=== PATIENT | male | born 1980 | race Caucasian/White ===

== ENCOUNTER 2020-03-24 12:05 | Day surgery (SDC) | payer OTHER ==
--- NOTE | 2020-01-02 08:34 | PCM.PREANE ---
Preanesthetic Assessment - Anesthesia/Transfusion/Family Hx Anesthesia History: Prior Anesthesia Without Reaction Family History of Anesthesia Reaction: No Transfusion History: No Prior Transfusion(s) Intubation History: Unknown - Review of Systems Pulmonary: No Symptoms (Smoker: 3/4 ppd times 20 years. ETOH:) - Physical Assessment NPO Status Date: 01/04/20 Vital Signs: HR: BP: Sat: Resp: Temp: Height: 1.85 m ASA Class: 2 Mental Status: Alert & Oriented x3 - Lab Values: All labs reviewed and noted and within acceptable ranges to proceed with scheduled procedure. - Anesthesia Plan Pre-Op Medication Ordered: None - Acknowledgements Anesthesia Type Planned: General Anesthesia Pt an Appropriate Candidate for the Planned Anesthesia: Yes Alternatives and Risks of Anesthesia Discussed w Pt/Guardian: Yes Pt/Guardian Understands and Agrees with Anesthesia Plan: Yes PreAnesthesia Questionnaire - CURRENT (IN HOUSE) MEDS Current Meds: Current Medications Lactated Ringer's (Ringers, Lactated) 1,000 mls @ 125 mls/hr IV ASDIRECTED ROGER Stop: 01/05/20 23:00 Lidocaine/Sodium Bicarbonate (Buffered Lidocaine 1% In Ns 8.4%) 0.25 ml IDERM ONETIME PRN PRN Reason: Prior to IV Start Stop: 01/05/20 18:00 Sodium Chloride (Saline Flush) 10 ml FLUSH ASDIRECTED PRN PRN Reason: Keep Vein Open Stop: 01/05/20 18:00
--- NOTE | 2020-03-24 11:56 | PCM.PREANE ---
Preanesthetic Assessment - Procedure Proposed Procedure: Diagnostic laparoscopy with umbilical hernia repair with mesh - Anesthesia/Transfusion/Family Hx Anesthesia History: Prior Anesthesia Without Reaction Family History of Anesthesia Reaction: No Transfusion History: No Prior Transfusion(s) Intubation History: Unknown - Review of Systems General: No Symptoms Pulmonary: No Symptoms (DANIEL, Attempting to quit smoking p 3 days times 20 yrs, ETOH: 2beers/week.) Cardiovascular: No Symptoms Gastrointestinal: No Symptoms (GERD occasionally) Neurological: No Symptoms, Headache (occasional sinus headache) Other: Reports: Sinus Problem - Physical Assessment NPO Status Date: 01/04/20 NPO Status Time: 20:00 Vital Signs: HR: 94 B/P:132/93 Sat: 97% Temp: 98 Resp: 16 Height: 1.85 m Weight: 144.696 kg ASA Class: 3 Mental Status: Alert & Oriented x3 Airway Class: Mallampati = 2 Dentition: Reports: Normal Dentition, Caries Thyro-Mental Finger Breadths: 3 Mouth Opening Finger Breadths: 3 ROM/Head Extension: Full Lungs: Clear to Auscultation, Normal Respiratory Effort Cardiovascular: Regular Rate, Regular Rhythm, No Murmurs - Lab Values: Laboratory Last Values SARS Virus RNA (PCR) Negative (NEGATIVE) 03/22/20 09:00 All labs reviewed and noted and within acceptable ranges to proceed with scheduled procedure. - Imaging/EKG Impressions: EKG: SR rate=82 - Allergies Allergies/Adverse Reactions: Allergies Allergy/AdvReac Type Severity Reaction Status Date / Time No Known Allergies Allergy Verified 03/23/20 13:41 - Anesthesia Plan Pre-Op Medication Ordered: None - Acknowledgements Anesthesia Type Planned: General Anesthesia Pt an Appropriate Candidate for the Planned Anesthesia: Yes Alternatives and Risks of Anesthesia Discussed w Pt/Guardian: Yes Pt/Guardian Understands and Agrees with Anesthesia Plan: Yes PreAnesthesia Questionnaire Cardiovascular History: Reports: None Respiratory History: Reports: None Gastrointestinal History: Reports: None Genitourinary History: Reports: None BAG TURNER History: Reports: None Musculoskeletal History: Reports: None Neurological History: Reports: None Psychiatric History: Reports: None Endocrine/Metabolic History: Reports: None Hematologic History: Reports: None Immunologic History: Reports: None Oncologic (Cancer) History: Reports: None Dermatologic History: Reports: Other (See Below) Other Dermatologic History: pilonidal cyst with I&D - Infectious Disease History Infectious Disease History: Reports: None - Past Surgical History Head Surgeries/Procedures: Reports: None HEENT Surgical History: Reports: Oral Surgery Cardiovascular Surgical History: Reports: None Respiratory Surgical History: Reports: None GI Surgical History: Reports: None Female Surgical History: Reports: None Male Surgical History: Reports: None Endocrine Surgical History: Reports: None Neurological Surgical History: Reports: None Musculoskeletal Surgical History: Reports: Other (See Below) Other Musculoskeletal Surgeries/Procedures:: right hand surgery Oncologic Surgical History: Reports: None Dermatological Surgical History: Reports: None - SUBSTANCE USE Smoking Status *Q: Current Every Day Smoker Recreational Drug Use History: No - HOME MEDS Home Medications: Home Meds Multivitamin [Daily Tisha] 1 tab PO DAILY 01/02/20 [History] Acetaminophen [Tylenol] 650 mg PO Q4H PRN 03/23/20 [History] Ibuprofen 400 mg PO Q6H PRN 03/23/20 [History] Varenicline Tartrate [Chantix] 1 mg PO BID 03/23/20 [History] - CURRENT (IN HOUSE) MEDS Current Meds: Current Medications Lactated Ringer's (Ringers, Lactated) 1,000 mls @ 125 mls/hr IV ASDIRECTED ROGER Stop: 03/24/20 23:00 Lidocaine/Sodium Bicarbonate (Buffered Lidocaine 1% In Ns 8.4%) 0.25 ml IDERM ONETIME PRN PRN Reason: Prior to IV Start Stop: 03/24/20 18:00 Sodium Chloride (Saline Flush) 10 ml FLUSH ASDIRECTED PRN PRN Reason: Keep Vein Open Stop: 03/24/20 18:00 Discontinued Medications Lactated Ringer's (Ringers, Lactated) 1,000 mls @ 125 mls/hr IV ASDIRECTED ROGER Stop: 01/05/20 23:00 Lidocaine/Sodium Bicarbonate (Buffered Lidocaine 1% In Ns 8.4%) 0.25 ml IDERM ONETIME PRN PRN Reason: Prior to IV Start Stop: 01/05/20 18:00 Sodium Chloride (Saline Flush) 10 ml FLUSH ASDIRECTED PRN PRN Reason: Keep Vein Open Stop: 01/05/20 18:00
[~2020-03-24 12:05] MED LIST: Lactated Ringers 1,000 ML IV SCH; Lidocaine 1%/Sod Bicarbonate in NS 8.4% 1 ML Syringe IDERM PRN; Sodium Chloride 0.9% 10 ML Syringe FLUSH PRN
[2020-03-24] MEDS ORDERED: Succinylcholine/Sod PF 100 MG/5 ML SYRINGE IV ONE (12:40)
[2020-03-24] MEDS ORDERED: Propofol 200 MG/20 ML SDV ONE (12:40)
[2020-03-24] MEDS ORDERED: Midazolam 1 MG/ML 2 ML SDV ONE (12:41)
[2020-03-24] MEDS ORDERED: fentaNYL 250 MCG/5 ML SDV ONE (12:41)
[2020-03-24] MEDS ORDERED: Lidocaine 1% 4 ML ONE (12:44)
[2020-03-24] MEDS ORDERED: ceFAZolin 1 GM Vial ONE (12:44)
[2020-03-24] MEDS ORDERED: Lidocaine 1% with EPINEPHrine 1:100,000 20 ML MDV ONE (12:55)
[2020-03-24] MEDS ORDERED: Bupivacaine 0.5%/EPINEPHrine 1:200,000 50 ML MDV ONE (12:55)
[2020-03-24] MEDS ORDERED: Rocuronium 50 MG/5 ML Vial ONE (14:01)
[2020-03-24] MEDS ORDERED: Dexamethasone 4 MG/ML 5 ML MDV ONE (14:23)
[2020-03-24] MEDS ORDERED: Ondansetron 4 MG/2 ML SDV ONE (14:40)
[2020-03-24] MEDS ORDERED: Lactated Ringers 2,000 ML ONE (14:42)
[2020-03-24] MEDS ORDERED: HYDROmorphone 1 MG/ML Syringe ONE (14:45)
[2020-03-24] MEDS ORDERED: fentaNYL 100 MCG/2 ML SDV IVPUSH PRN (15:28)
[2020-03-24] MEDS ORDERED: HYDROmorphone 0.5 MG/0.5 ML Syringe IVPUSH PRN (15:28)
[2020-03-24] MEDS ORDERED: Ketorolac 30 MG/ML SDV ONE (15:29)
--- NOTE | 2020-03-24 15:38 | PCM.OPNOTE ---
- General Post-Op/Procedure Note Date of Surgery/Procedure: 03/24/20 Operative Procedure(s): 1. Diagnostic laparoscopy. 2. Laparoscopic umbilical hernia repair with mesh Findings: Umbilical hernia with approximately 1.5 cm defect Pre Op Diagnosis: Umbilical hernia Post-Op Diagnosis: Same Anesthesia Technique: General ET Tube Primary Surgeon: Thais Gonzalez Anesthesia Provider: Bg Howell Pathology: none Fluid Replacement, Intraop: 2,600 Output, Urine Amount: 0 EBL in mLs: 5 Complications: none apparent Condition: Good
--- NOTE | 2020-03-24 15:43 | PCM.PRNOTE ---
- Free Text/Narrative Note: Operative Report Date of surgery: March 24, 2020 Preoperative diagnosis: Umbilical hernia Postoperative diagnosis: same Surgeon: Dr. Thais Gonzalez Anesthesia: General ET with local Cafe Operator: Bg Howell CRNA Estimated blood loss: 5 mL IV fluids: 2600 mL Urine output: None, patient voided prior to start of the procedure Drains and lines: None Indication for the procedure: The patient is a 40-year-old gentleman who presented to my office with complaint of umbilical pain radiating into groin pain. His symptoms were consistent with an umbilical hernia, however it was unclear if he also had symptoms relating to an inguinal hernia. I discussed the procedure of a laparoscopic umbilical hernia repair with mesh with the patient, with additional diagnostic laparoscopy to evaluate the inguinal areas. Risks of infection, bleeding and mesh complication was reviewed, and written consent was obtained Description of the Procedure: The patient presented to the outpatient holding area on the day for procedure history and physical were verified and the consent was present and on the chart. He was taken back to the operating room and placed in supine position on the operating table. SCD boots were placed and functional prior to the service procedure. The patient received preoperative antibiotics as per SCIP protocol. The patient had successful induction of general anesthesia and was intubated without difficulty. The patient's left arm was tucked and the pressure points were padded. The patient was prepped and draped in standard surgical fashion and a timeout was performed. The abdomen was draped with Ioban to begin. A 5 mm incision was then made in the left upper quadrant just under the subcostal margin. A 5 mm port was then inserted into the abdomen with the Visiport technique. The abdomen was insufflated to 15 mmHg. There was no evidence of any injury in the area where we had entered the abdomen. A TAP block was then performed using mixed 1% lidocaine with epinephrine and 0.5% bupivacaine with epinephrine. We then proceeded to survey the area of hernia. A 5 mm port was inserted in the right lower quadrant. We then opened the peritoneum around the defect and removed the hernia sac from the defect. Once the defect was prepped for closure, a 14 mm incision was made in the umbilicus. An 11 mm port was inserted into the umbilicus. 0 Ethibond suture was then passed around the defect using the Endo Close suture passer. A large ( 8 cm) Ventralex circular mesh with straps was then rolled and placed through the 11 mm port into the abdomen. The port was then removed and the mesh was flattened to cover the defect. The Ethibond sutures were then tied down to close the defect. A secure strap tacker was then used to secure the mesh in place. The hernia defect was well covered. The abdomen was then desufflated and the ports were removed. The umbilical site was closed with 3-0 Vicryl in the subcutaneous tissues over the mesh. All of the incision sites were then closed with 4-0 Monocryl suture. Dermabond surgical glue were used to cover the port sites and stab incisions. The patient tolerated the procedure well and was transported to the PACU in stable condition. All sponge and needle counts correct. The Ramirez catheter was removed at the conclusion of the case Complications: none apparent Disposition: stable to PACU Thais Gonzalez MD General Surgery
--- NOTE | 2020-03-24 16:03 | PCM.POSTAN ---
POST ANESTHESIA ASSESSMENT - MENTAL STATUS Mental Status: Alert, Oriented - VITAL SIGNS Vital Signs: Last Vital Signs Temp 98.3 F 03/24/20 15:47 Pulse 93 03/24/20 15:47 Resp 25 H 03/24/20 15:47 BP 134/83 03/24/20 15:47 Pulse Ox 97 03/24/20 15:47 - RESPIRATORY Respiratory Status: Respiratory Rate WNL, Airway Patent, O2 Saturation Stable, Supplemental Oxygen - CARDIOVASCULAR CV Status: Pulse Rate WNL, Blood Pressure Stable - GASTROINTESTINAL GI Status: No Symptoms - PAIN Pain Score: 0 - POST OP HYDRATION Hydration Status: Adequate & Stable
--- NOTE | 2020-03-24 16:41 | PCM48HPAN ---
Post Anesthesia Note - EVALUATION WITHIN 48HRS OF ANESTHETIC Vital Signs in Normal Range: Yes Patient Participated in Evaluation: Yes Respiratory Function Stable: Yes Airway Patent: Yes Cardiovascular Function Stable: Yes Hydration Status Stable: Yes Nausea and Vomiting Control Satisfactory: Yes Mental Status Recovered: Yes Vital Signs: Last Vital Signs Temp 98.3 F 03/24/20 16:00 Pulse 85 03/24/20 16:00 Resp 20 03/24/20 16:00 BP 137/83 03/24/20 16:00 Pulse Ox 96 03/24/20 16:00 - COMMENTS/OBSERVATIONS Free Text/Narrative:: Patient is being transferred to extended floor recovery prior to discharge home.
[2020-03-24] MEDS ORDERED: Acetaminophen/HYDROcodone 325-5 MG Tab PO PRN (16:46)
== END 2020-03-24 20:07 | disposition home or self-care (01) ==
LOC: JD.SDS 12:05 → JD.MS 17:00 → JD.SDS 20:07
PROVIDERS: ATTEND Surgery
DX: K42.9 Umbilical hernia without obstruction or gangrene (principal); Z11.59 Encounter for screening for other viral diseases; Z79.899 Other long term (current) drug therapy; Z87.891 Personal history of nicotine dependence
CPT/HCPCS: 00790; 36415; 80048; 93005; C1781; J0330; J0690; J1100; J1170; J1885; J2001; J2250; J2405; J2704; J2710; J3010; J3490; J7120; U0002

== ENCOUNTER 2020-03-28 10:55 | Inpatient (IN) | payer OTHER ==
[2020-03-28] MEDS ORDERED: Ondansetron 4 MG/2 ML SDV IVPUSH ONE (11:14)
[2020-03-28] MEDS ORDERED: Sodium Chloride 0.9% 1,000 ML IV SCH (11:15)
--- NOTE | 2020-03-28 11:20 | EDM.PDOC ---
ED HPI GENERAL MEDICAL PROBLEM - General Chief Complaint: Abdominal Pain Stated Complaint: ABDOMINAL PAIN POST SURGERY 03/24 Time Seen by Provider: 03/28/20 11:06 Source of Information: Reports: Patient History Limitations: Reports: No Limitations - History of Present Illness INITIAL COMMENTS - FREE TEXT/NARRATIVE: Patient is a 40 year old male who presents to the emergency department with c/o abdominal pain, bloating, and distention. He is postop day 3 s/p umbillical hernia repair by Dr. Barrett. He states that he has been doing well overall since sx until this morning. When he awoke this morning he had increased abdominal pain which he describes as "pressure". He states his abdomen is more distended and firm than it had been previously. He was passing gas last night, but has not passed any thus far today. He had a good bm yesterday morning, but none today. He has been using Ibuprofen 800mg and [place] for pain, as well as a daily stool softener. He last took these medications around 0730 this morning. He feels slightly nauseous due to the pressure pushing up on his stomach. He denies any fever, chills, or vomiting. Middle Abdominal Pain Score (Numeric/FACES): 8 - Related Data Allergies Allergy/AdvReac Type Severity Reaction Status Date / Time No Known Allergies Allergy Verified 03/28/20 11:03 Home Meds: Home Meds Docusate Sodium [Colace] 100 mg PO BID #40 cap 03/24/20 [Rx] Hydrocodone/Acetaminophen [[place] 5-325 Tablet] 1 each PO Q4HR PRN #30 tablet 01/08 [Rx] Ibuprofen 800 mg PO Q8HR PRN #30 tablet 03/24/20 [Rx] Past Medical History Cardiovascular History: Reports: None Respiratory History: Reports: None Gastrointestinal History: Reports: None Genitourinary History: Reports: None ACTION FINISHER History: Reports: None Musculoskeletal History: Reports: None Neurological History: Reports: None Psychiatric History: Reports: None Endocrine/Metabolic History: Reports: None Hematologic History: Reports: None Immunologic History: Reports: None Oncologic (Cancer) History: Reports: None Dermatologic History: Reports: Other (See Below) Other Dermatologic History: pilonidal cyst with I&D - Infectious Disease History Infectious Disease History: Reports: None - Past Surgical History Head Surgeries/Procedures: Reports: None HEENT Surgical History: Reports: Oral Surgery Cardiovascular Surgical History: Reports: None Respiratory Surgical History: Reports: None GI Surgical History: Reports: None Male Surgical History: Reports: None Endocrine Surgical History: Reports: None Neurological Surgical History: Reports: None Musculoskeletal Surgical History: Reports: Other (See Below) Other Musculoskeletal Surgeries/Procedures:: right hand surgery Oncologic Surgical History: Reports: None Dermatological Surgical History: Reports: None Social & Family History - Tobacco Use Smoking Status *Q: Current Every Day Smoker Years of Tobacco use: 20 Packs/Tins Daily: 0.5 - Caffeine Use Caffeine Use: Reports: Energy Drinks, Tea - Recreational Drug Use Recreational Drug Use: No ED ROS GENERAL - Review of Systems Review Of Systems: See Below Constitutional: Reports: Decreased Appetite. Denies: Fever, Chills HEENT: Reports: No Symptoms Respiratory: Reports: No Symptoms Cardiovascular: Reports: No Symptoms Endocrine: Reports: No Symptoms GI/Abdominal: Reports: Abdominal Pain, Decreased Appetite, Distension, Nausea. Denies: Diarrhea, Flatus, Vomiting : Reports: No Symptoms Musculoskeletal: Reports: No Symptoms Skin: Reports: No Symptoms Neurological: Reports: No Symptoms Psychiatric: Reports: No Symptoms Hematologic/Lymphatic: Reports: No Symptoms Immunologic: Reports: No Symptoms ED EXAM, GI/ABD - Physical Exam Exam: See Below Exam Limited By: No Limitations General Appearance: Alert, WD/WN, No Apparent Distress Respiratory/Chest: No Respiratory Distress, Lungs Clear, Normal Breath Sounds, No Accessory Muscle Use, Chest Non-Tender Cardiovascular: Normal Peripheral Pulses, Regular Rate, Rhythm, No Edema, No Gallop, No JVD, No Murmur, No Rub GI/Abdominal Exam: Distended, Tender (generalized throughout), Abnormal Bowel Sounds (hypoactive throughout), Other (firm) Neurological: Alert, Oriented, CN II-XII Intact, Normal Cognition, Normal Gait, Normal Reflexes, No Motor/Sensory Deficits Psychiatric: Normal Affect, Normal Mood Skin Exam: Warm, Dry, Intact, Normal Color, No Rash Course - Vital Signs Last Recorded V/S: Last Vital Signs Temp 97.9 F 03/28/20 15:13 Pulse 102 H 03/28/20 15:13 Resp 19 03/28/20 15:13 BP 141/89 H 03/28/20 15:13 Pulse Ox 95 03/28/20 15:13 - Orders/Labs/Meds Orders: Active Orders 24 hr Category Date Time Status Sodium Chloride 0.9% [Saline Flush] Med 03/28/20 11:33 Active 10 ml FLUSH ONETIME PRN Medication Orders Heparin Sodium (Porcine) (Heparin Sodium) 7,500 units SUBCUT Q8H [facility] Last Admin: 03/28/20 16:05 Dose: 7,500 units Lactated Ringer's (Ringers, Lactated) 1,000 mls @ 100 mls/hr IV ASDIRECTED [facility] Last Admin: 03/28/20 16:03 Dose: 100 mls/hr Ketorolac Tromethamine (Toradol) 30 mg IVPUSH Q8H PRN PRN Reason: Pain Last Admin: 03/28/20 16:31 Dose: 30 mg Phenol/Menthol (Chloraseptic Throat [place]) 0 ml MUCMEM Q2H PRN PRN Reason: Sore Throat Sodium Chloride (Saline Flush) 10 ml FLUSH ONETIME PRN PRN Reason: IV FLUSH Last Admin: 03/28/20 13:25 Dose: 10 ml Labs: Laboratory Tests 03/28/20 03/28/20 03/28/20 Range/Units 11:30 11:30 13:45 WBC 18.17 H (4.23-9.07) K/mm3 RBC 5.25 (4.63-6.08) M/mm3 Hgb 15.2 (13.7-17.5) gm/dl Hct 46.1 (40.1-51.0) % MCV 87.8 (79.0-92.2) fl MCH 29.0 (25.7-32.2) pg MCHC 33.0 (32.2-35.5) g/dl RDW Std Deviation 44.0 H (35.1-43.9) fL Plt Count 349 H (163-337) K/mm3 MPV 11.5 (9.4-12.3) fl Neut % (Auto) 74.5 H (34.0-67.9) % Lymph % (Auto) 17.0 L (21.8-53.1) % [place] % (Auto) 5.7 (5.3-12.2) % Eos % (Auto) 2.3 (0.8-7.0) Baso % (Auto) 0.3 (0.1-1.2) % Neut # (Auto) 13.55 H (1.78-5.38) K/mm3 Lymph # (Auto) 3.09 (1.32-3.57) K/mm3 [place] # (Auto) 1.03 H (0.30-0.82) K/mm3 Eos # (Auto) 0.41 (0.04-0.54) K/mm3 Baso # (Auto) 0.05 (0.01-0.08) K/mm3 Sodium 137 (136-145) mEq/L Potassium 4.0 (3.5-5.1) mEq/L Chloride 102 (98-107) mEq/L Carbon Dioxide 26 (21-32) mEq/L Anion Gap 13.0 (5-15) BUN 14 (7-18) mg/dL Creatinine 0.9 (0.7-1.3) mg/dL Est Cr Clr Drug Dosing 123.30 mL/min Estimated GFR (MDRD) > 60 (>60) mL/min BUN/Creatinine Ratio 15.6 (14-18) Glucose 110 H (74-106) mg/dL Calcium 9.1 (8.5-10.1) mg/dL Total Bilirubin 0.5 (0.2-1.0) mg/dL AST 18 (15-37) U/L ALT 22 (16-63) U/L Alkaline Phosphatase 74 (46-116) U/L C-Reactive Protein 4.4 H* (<1.0) mg/dL Total Protein 7.7 (6.4-8.2) g/dl Albumin 3.7 (3.4-5.0) g/dl Globulin 4.0 gm/dL Albumin/Globulin Ratio 0.9 L (1-2) Lipase 86 (73-393) U/L Urine Color Yellow (Yellow) Urine Appearance Clear (Clear) Urine pH 7.0 (5.0-8.0) Ur Specific [place] 1.015 (1.005-1.030) Urine Protein Negative (Negative) Urine Glucose (UA) Negative (Negative) Urine Ketones Negative (Negative) Urine Occult Blood Trace-intact H (Negative) Urine Nitrite Negative (Negative) Urine Bilirubin Negative (Negative) Urine Urobilinogen 0.2 (0.2-1.0) Ur Leukocyte Esterase Trace H (Negative) Urine RBC 0-5 (0-5) /hpf Urine WBC 0-5 (0-5) /hpf Ur Squamous Epith Cells 10-20 H (0-5) /hpf Urine Bacteria Few (FEW) /hpf Urine Mucus Not seen (FEW) /hpf Meds: Medications Generic Name Dose Route Start Last Admin Trade Name Sharyn PRN Reason Stop Dose Admin Heparin Sodium (Porcine) 7,500 units 03/28/20 14:00 03/28/20 16:05 Heparin Sodium SUBCUT 7,500 units Q8H ROGER Administration Lactated Ringer's 1,000 mls @ 100 mls/hr 03/28/20 14:30 03/28/20 16:03 Ringers, Lactated IV 100 mls/hr ASDIRECTED ROGER Administration Ketorolac Tromethamine 30 mg 03/28/20 16:13 03/28/20 16:31 Toradol IVPUSH 30 mg Q8H PRN Administration Pain Phenol/Menthol 0 ml 03/28/20 16:13 Chloraseptic Throat [place] MUCMEM Q2H PRN Sore Throat Sodium Chloride 10 ml 03/28/20 11:33 03/28/20 13:25 Saline Flush FLUSH 10 ml ONETIME PRN Administration IV FLUSH Discontinued Medications Generic Name Dose Route Start Last Admin Trade Name Sharyn PRN Reason Stop Dose Admin Diatrizoate Meglum/Diatrizoate Sod 120 ml 03/28/20 11:33 03/28/20 13:25 Gastrografin 37% PO 03/28/20 11:34 95 ml ONETIME ONE Administration Hydromorphone HCl 0.5 mg 03/28/20 13:46 03/28/20 13:53 Dilaudid IVPUSH 03/28/20 13:47 0.5 mg ONETIME ONE Administration Sodium Chloride 1,000 mls @ 150 mls/hr 03/28/20 11:15 03/28/20 11:32 Normal Saline IV 150 mls/hr ASDIRECTED ROGER Administration Sodium Chloride 1,000 mls @ 1,000 mls/hr 03/28/20 14:39 03/28/20 15:24 Normal Saline IV 03/28/20 15:38 1,000 mls/hr ONETIME ONE Administration Iopamidol 100 ml 03/28/20 11:33 03/28/20 13:25 Isovue-370 (76%) IVPUSH 03/28/20 11:34 100 ml ONETIME ONE Administration Iopamidol 50 ml 03/28/20 12:58 03/28/20 13:25 Isovue-370 (76%) IVPUSH 03/28/20 12:59 50 ml ONETIME ONE Administration Ondansetron HCl 4 mg 03/28/20 11:14 03/28/20 11:32 Zofran IVPUSH 03/28/20 11:15 4 mg ONETIME ONE Administration - Re-Assessments/Exams Free Text/Narrative Re-Assessment/Exam: 03/28/20 13:52 Hematology significant for WBC elevated 18.17 with a left shift, as well as a CRP elevated at 4.4. Patient has not voided so urinalysis results not available. CT scan of the abdomen pelvis results as follows: 1. Dilated jejunal loops which also contain fecal lysed material. Findings are felt compatible with the mid to distal small bowel obstruction. Distal ileal loops show no dilation. Etiology is not identified and findings are most likely due to adhesion. 2. Appearance of umbilical hernia which contains fluid. Mild inflammatory changes seen in this area. Please correlate if this relates to prior surgery. 3. No significant contrast excretion into the ureters on delayed images raising the possibility of dehydration. 4. No other acute findings appreciated. Results of work-up discussed with on-call surgeon, Dr. Horton. He will be in to see the patient. Patient updated on these findings. He did appear to be uncomfortable. I ordered Dilaudid 0.5 mg IV to be given now. 03/28/20 14:00 Dr. Horton was here to see the patient. He will admit the patient for small bowel obstruction. Departure - Departure Time of Disposition: 14:00 Disposition: Admitted As Inpatient 66 Condition: Good Clinical Impression: Small bowel obstruction - Discharge Information Sepsis Event Note - Evaluation Sepsis Screening Result: No Definite Risk - Focused Exam Vital Signs: Vital Signs Temp Pulse Resp BP Pulse Ox 03/28/20 11:01 98.8 F 84 15 144/95 H 96 Date Exam was Performed: 03/28/20 Time Exam was Performed: 16:43 - My Orders Last 24 Hours: My Active Orders 03/28/20 11:33 Sodium Chloride 0.9% [Saline Flush] 10 ml FLUSH ONETIME PRN - Assessment/Plan Last 24 Hours: My Active Orders 03/28/20 11:33 Sodium Chloride 0.9% [Saline Flush] 10 ml FLUSH ONETIME PRN
[2020-03-28] MEDS ORDERED: Sodium Chloride 0.9% 10 ML Syringe FLUSH PRN (11:33)
[2020-03-28] MEDS ORDERED: Iopamidol 755 Mg/ML 100 ML Bottle IVPUSH ONE (11:33)
[2020-03-28] MEDS ORDERED: Diatrizoate Meglumine/Diatrizoate Sodium 37% 120 ML Bottle PO ONE (11:33)
[2020-03-28] MEDS ORDERED: Iopamidol 755 MG/ML 50 ML Bottle IVPUSH ONE (12:58)
--- NOTE | 2020-03-28 13:41 | CT ---
CT abdomen and pelvis Technique: Multiple axial sections were obtained from above the dome of the diaphragm inferiorly through the pubic symphysis. Intravenous contrast was utilized. Oral contrast is seen which remains within the stomach. Comparison: No prior abdominal imaging is available. Findings: Visualized lung bases shows mild posterior atelectasis. Liver contains no focal parenchymal abnormality. Gallbladder contains no calcified gallstones. Spleen appears within normal limits. Adrenal glands show no nodule. Pancreas is within normal limits. Right kidney shows no hydronephrosis or mass. Left kidney shows a cyst measuring 1.6 cm. No additional abnormalities are seen within the kidneys. Aorta shows no aneurysm. No retroperitoneal adenopathy or mesenteric abnormalities are seen. No pelvic mass or adenopathy is seen. Dilated small bowel loops are seen within the jejunum. There is some fecalized stool within the small bowel. Distal ileal loops are collapsed. Etiology for this finding is not seen in findings most likely are due to an adhesion. Umbilical hernia is noted. Umbilical hernia contains some fluid as well as mild surrounding inflammatory change. Appendix is seen and is normal in size. Delayed images show no significant contrast excretion raising the possibility of dehydration. Bone window settings were reviewed which appear within normal limits for the patient's age. Impression: 1. Dilated jejunal loops which also contain fecalized material. Findings are felt compatible with the mid to distal small bowel obstruction. Distal ileal loops show no dilatation. Etiology is not identified and findings are most likely due to adhesion. 2. Appearance of umbilical hernia which contains fluid. Mild inflammatory change is seen in this area. Please correlate if this relates to prior surgery 3. No significant contrast excretion into the ureters on delayed images raising the possibility of dehydration. 4. No other acute finding is appreciated. Diagnostic code #3 This report was dictated in MDT
[2020-03-28] MEDS ORDERED: HYDROmorphone 0.5 MG/0.5 ML Syringe IVPUSH ONE (13:46)
--- NOTE | 2020-03-28 14:27 | PCM.HP.2 ---
H&P History of Present Illness - General Date of Service: 03/28/20 Admit Problem/Dx: Admission Diagnosis/Problem Admission Diagnosis/Problem Small bowel obstruction Source of Information: Patient History Limitations: Reports: No Limitations - History of Present Illness Onset of Symptoms: Reports: Today Duration of Symptoms: Reports: Hour(s): Location: Reports: Abdomen Other HPI/Comments: Mr. Reyes is a 40 yo man who underwent a laparoscopic umbilical hernia repair with mesh placement with Dr. Barrett a few days ago. He was doing well until this morning, when he developed worsening abdominal pain, distention, and a feeling of fullness in his chest. Yesterday, he was doing well and had a bowel movement. He last noticed flatus last night. He denies vomiting or fever. He had some water and coffee this morning, which has stayed down, although the patient feels nauseated. In the emergency room, the patient appears to be in mild discomfort. His vitals are within normal range. His abdomen is distended and tender. There are no findings of surgical site infection or hernia recurrence. Lab work is significant for WBC 18,000, and CT scan shows evidence of small bowel obstruction with transition point near the mesh repair. Middle Abdominal Pain Score (Numeric/FACES): 8 - Related Data Allergies/Adverse Reactions: Allergies Allergy/AdvReac Type Severity Reaction Status Date / Time No Known Allergies Allergy Verified 03/28/20 11:03 Home Medications: Home Meds Docusate Sodium [Colace] 100 mg PO BID #40 cap 03/24/20 [Rx] Hydrocodone/Acetaminophen [[place] 5-325 Tablet] 1 each PO Q4HR PRN #30 tablet 01/08 [Rx] Ibuprofen 800 mg PO Q8HR PRN #30 tablet 03/24/20 [Rx] Past Medical History Cardiovascular History: Reports: None Respiratory History: Reports: None Gastrointestinal History: Reports: None Genitourinary History: Reports: None 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 Musculoskeletal History: Reports: None Neurological History: Reports: None Psychiatric History: Reports: None Endocrine/Metabolic History: Reports: None Hematologic History: Reports: None Immunologic History: Reports: None Oncologic (Cancer) History: Reports: None Dermatologic History: Reports: Other (See Below) Other Dermatologic History: pilonidal cyst with I&D - Infectious Disease History Infectious Disease History: Reports: None - Past Surgical History Head Surgeries/Procedures: Reports: None HEENT Surgical History: Reports: Oral Surgery Cardiovascular Surgical History: Reports: None Respiratory Surgical History: Reports: None GI Surgical History: Reports: None Male Surgical History: Reports: None Endocrine Surgical History: Reports: None Neurological Surgical History: Reports: None Musculoskeletal Surgical History: Reports: Other (See Below) Other Musculoskeletal Surgeries/Procedures:: right hand surgery Oncologic Surgical History: Reports: None Dermatological Surgical History: Reports: None Social & Family History - Tobacco Use Smoking Status *Q: Current Every Day Smoker Years of Tobacco use: 20 Packs/Tins Daily: 0.5 - Caffeine Use Caffeine Use: Reports: Energy Drinks, Tea - Recreational Drug Use Recreational Drug Use: No H&P Review of Systems - Review of Systems: Review Of Systems: See Below General: Reports: No Symptoms HEENT: Reports: No Symptoms Pulmonary: Reports: No Symptoms Cardiovascular: Reports: No Symptoms Gastrointestinal: Reports: Abdominal Pain, Anorexia, Distension, Nausea Genitourinary: Reports: No Symptoms Skin: Reports: No Symptoms Psychiatric: Reports: No Symptoms Neurological: Reports: No Symptoms Hematologic/Lymphatic: Reports: No Symptoms Exam - Exam Exam: See Below - Vital Signs Vital Signs: Last Vital Signs Temp 37.1 C 03/28/20 11:01 Pulse 84 03/28/20 11:01 Resp 15 03/28/20 11:01 BP 144/95 H 03/28/20 11:01 Pulse Ox 96 03/28/20 11:01 Weight: 145.15 kg - Exam General: Alert, Oriented, Cooperative HEENT: Conjunctiva Clear Neck: Trachea Midline Lungs: Normal Respiratory Effort Cardiovascular: Regular Rate, Regular Rhythm GI/Abdominal Exam: Distended, Tender, Other (dull to percussion. Incision sites with minor surrounding ecchymosis. ) Rectal (Males) Exam: Deferred Extremities: Normal Capillary Refill Skin: Warm, Dry Neuro Extensive - Mental Status: Normal Mood/Affect - Patient Data Lab Results Last 24 hrs: Laboratory Results - last 24 hr 03/28/20 03/28/20 03/28/20 Range/Units 11:30 11:30 13:45 WBC 18.17 H (4.23-9.07) K/mm3 RBC 5.25 (4.63-6.08) M/mm3 Hgb 15.2 (13.7-17.5) gm/dl Hct 46.1 (40.1-51.0) % MCV 87.8 (79.0-92.2) fl MCH 29.0 (25.7-32.2) pg MCHC 33.0 (32.2-35.5) g/dl RDW Std Deviation 44.0 H (35.1-43.9) fL Plt Count 349 H (163-337) K/mm3 MPV 11.5 (9.4-12.3) fl Neut % (Auto) 74.5 H (34.0-67.9) % Lymph % (Auto) 17.0 L (21.8-53.1) % [place] % (Auto) 5.7 (5.3-12.2) % Eos % (Auto) 2.3 (0.8-7.0) Baso % (Auto) 0.3 (0.1-1.2) % Neut # (Auto) 13.55 H (1.78-5.38) K/mm3 Lymph # (Auto) 3.09 (1.32-3.57) K/mm3 [place] # (Auto) 1.03 H (0.30-0.82) K/mm3 Eos # (Auto) 0.41 (0.04-0.54) K/mm3 Baso # (Auto) 0.05 (0.01-0.08) K/mm3 Sodium 137 (136-145) mEq/L Potassium 4.0 (3.5-5.1) mEq/L Chloride 102 (98-107) mEq/L Carbon Dioxide 26 (21-32) mEq/L Anion Gap 13.0 (5-15) BUN 14 (7-18) mg/dL Creatinine 0.9 (0.7-1.3) mg/dL Est Cr Clr Drug Dosing 123.30 mL/min Estimated GFR (MDRD) > 60 (>60) mL/min BUN/Creatinine Ratio 15.6 (14-18) Glucose 110 H (74-106) mg/dL Calcium 9.1 (8.5-10.1) mg/dL Total Bilirubin 0.5 (0.2-1.0) mg/dL AST 18 (15-37) U/L ALT 22 (16-63) U/L Alkaline Phosphatase 74 (46-116) U/L C-Reactive Protein 4.4 H* (<1.0) mg/dL Total Protein 7.7 (6.4-8.2) g/dl Albumin 3.7 (3.4-5.0) g/dl Globulin 4.0 gm/dL Albumin/Globulin Ratio 0.9 L (1-2) Lipase 86 (73-393) U/L Urine Color Yellow (Yellow) Urine Appearance Clear (Clear) Urine pH 7.0 (5.0-8.0) Ur Specific [place] 1.015 (1.005-1.030) Urine Protein Negative (Negative) Urine Glucose (UA) Negative (Negative) Urine Ketones Negative (Negative) Urine Occult Blood Trace-intact H (Negative) Urine Nitrite Negative (Negative) Urine Bilirubin Negative (Negative) Urine Urobilinogen 0.2 (0.2-1.0) Ur Leukocyte Esterase Trace H (Negative) Urine RBC 0-5 (0-5) /hpf Urine WBC 0-5 (0-5) /hpf Ur Squamous Epith Cells 10-20 H (0-5) /hpf Urine Bacteria Few (FEW) /hpf Urine Mucus Not seen (FEW) /hpf Result Diagrams: 03/28/20 11:30 03/28/20 11:30 Sepsis Event Note - Evaluation Sepsis Screening Result: No Definite Risk - Focused Exam Vital Signs: Vital Signs Temp Pulse Resp BP Pulse Ox 03/28/20 11:01 37.1 C 84 15 144/95 H 96 Date Exam was Performed: 03/28/20 Time Exam was Performed: 14:22 *Q Meaningful Use (ADM) - VTE Risk Assess *Q Each Risk Factor Represents 2 Points: Laparoscopic surgery greater than 45 minutes Total Score 2 Point Risk Factors: 2 Problem List Initiated/Reviewed/Updated: Yes Orders Last 24hrs: Active Orders 24 hr Category Date Time Status Patient Status [ADT] Routine ADT 03/28/20 14:17 Ordered Activity as Tolerated [RC] .Routine Care 03/28/20 14:17 Ordered Antiembolic Devices [RC] PER UNIT ROUTINE Care 03/28/20 14:18 Ordered Gastrointestinal Tube Mgmt [RC] ASDIRECTED Care 03/28/20 14:19 Ordered Gastrointestinal Tube Mgmt [RC] ASDIRECTED Care 03/28/20 14:19 Ordered Oxygen Therapy [RC] PRN Care 03/28/20 14:17 Ordered RT Incentive Spirometry [RC] Q1HWA Care 03/28/20 14:17 Ordered Vital Signs [RC] Q4HR Care 03/28/20 14:17 Ordered Nothing Per Oral Diet [DIET] Diet 03/28/20 Breakfast Ordered BASIC METABOLIC PANEL,BMP [CHEM] AM Lab 03/29/20 05:11 Ordered CBC WITH AUTO DIFF [HEME] AM Lab 03/29/20 05:11 Ordered LACTIC ACID [CHEM] Stat Lab 03/28/20 14:05 Ordered Heparin Sodium Med 03/28/20 14:30 Ordered 7,500 units SUBCUT Q8H Lactated Ringers @ 100 MLS/HR(1000ml Bag) Med 03/28/20 14:30 Ordered Lactated Ringers [Ringers, Lactated] 1,000 ml IV ASDIRECTED Sodium Chloride 0.9% [Normal Saline] 1,000 ml Med 03/28/20 11:15 Active IV ASDIRECTED Sodium Chloride 0.9% [Saline Flush] Med 03/28/20 11:33 Active 10 ml FLUSH ONETIME PRN Nasogastric Orogastric Tube Insertion [OM.PC] Routine Oth 03/28/20 14:19 Ordered Sequential Compression Device [OM.PC] Routine Oth 03/28/20 14:17 Ordered Resuscitation Status Routine Resus Stat 03/28/20 14:17 Ordered Medication Orders Heparin Sodium (Porcine) (Heparin Sodium) 7,500 units SUBCUT Q8H [facility] Sodium Chloride (Normal Saline) 1,000 mls @ 150 mls/hr IV ASDIRECTED ROGER Last Admin: 03/28/20 11:32 Dose: 150 mls/hr Lactated Ringer's (Ringers, Lactated) 1,000 mls @ 100 mls/hr IV ASDIRECTED ROGER Sodium Chloride (Saline Flush) 10 ml FLUSH ONETIME PRN PRN Reason: IV FLUSH Last Admin: 03/28/20 13:25 Dose: 10 ml Assessment/Plan Comment:: Small bowel obstruction following recent laparoscopic umbilical hernia repair, with higher than expected leukocytosis. After examining the patient and reviewing the labs and imaging, I discussed the patient with Dr. Barrett, who will take over care of the patient tomorrow morning. Plan: -admit to medical-surgical unit -Vitals q 4h -NPO, NG decompression, low intermittent suction. Record output -LR @ 100 cc/hr -pulmonary toilet/ IS, OOB as tolerated -Repeat CBC and BMP in AM -urinalysis pending -serial abdominal exams -heparin 7500 u SC for DVT ppx - Mortality Measure Prognosis:: Good
[2020-03-28] MEDS ORDERED: Sodium Chloride 0.9% 1,000 ML IV ONE (14:39)
[2020-03-28] MEDS: Heparin Sodium 5,000 Units/ML Vial SUBCUT SCH ×3 (14:45→21:57)
[2020-03-28] MEDS: Lactated Ringers 1,000 ML IV SCH (16:03)
[2020-03-28] MEDS: Ketorolac 30 MG/ML SDV IVPUSH PRN (16:31)
[2020-03-29] MEDS: Ketorolac 30 MG/ML SDV IVPUSH PRN ×3 (00:41→18:28)
[2020-03-29] MEDS: Lactated Ringers 1,000 ML IV SCH ×3 (01:12→18:22)
[2020-03-29] MEDS: Phenol 1.4% Oral Spray 177 ML Bottle MUCMEM PRN ×3 (04:09→15:48)
[2020-03-29] MEDS: Heparin Sodium 5,000 Units/ML Vial SUBCUT SCH ×3 (05:49→21:29)
--- NOTE | 2020-03-29 15:30 | PCM.SURGPN ---
- General Info Date of Service: 03/29/20 POD#: 5 Functional Status: Reports: Pain Controlled, Ambulating, Urinating, Other (NGT in place. Denies any nausea currently. Passed flatus this am. Per nursing, NGT with 200-400cc output every 4 hours) - Patient Data Vitals - Most Recent: Last Vital Signs Temp 36.8 C 03/29/20 11:44 Pulse 84 03/29/20 11:44 Resp 20 03/29/20 11:44 BP 134/86 03/29/20 11:44 Pulse Ox 92 L 03/29/20 11:44 Weight - Most Recent: 149.413 kg I&O - Last 24 Hours: Intake & Output 03/29/20 03/29/20 03/29/20 06:59 14:59 22:59 Intake Total 1200 Output Total 1550 950 Balance -350 -950 Lab Results Last 24 Hrs: Laboratory Results - last 24 hr 03/29/20 03/29/20 Range/Units 05:18 05:18 WBC 10.00 H (4.23-9.07) K/mm3 RBC 4.79 (4.63-6.08) M/mm3 Hgb 13.8 (13.7-17.5) gm/dl Hct 42.7 (40.1-51.0) % MCV 89.1 (79.0-92.2) fl MCH 28.8 (25.7-32.2) pg MCHC 32.3 (32.2-35.5) g/dl RDW Std Deviation 44.5 H (35.1-43.9) fL Plt Count 311 (163-337) K/mm3 MPV 11.6 (9.4-12.3) fl Neut % (Auto) 68.6 H (34.0-67.9) % Lymph % (Auto) 23.0 (21.8-53.1) % [place] % (Auto) 6.3 (5.3-12.2) % Eos % (Auto) 1.8 (0.8-7.0) Baso % (Auto) 0.2 (0.1-1.2) % Neut # (Auto) 6.86 H (1.78-5.38) K/mm3 Lymph # (Auto) 2.30 (1.32-3.57) K/mm3 [place] # (Auto) 0.63 (0.30-0.82) K/mm3 Eos # (Auto) 0.18 (0.04-0.54) K/mm3 Baso # (Auto) 0.02 (0.01-0.08) K/mm3 Sodium 139 (136-145) mEq/L Potassium 4.0 (3.5-5.1) mEq/L Chloride 102 (98-107) mEq/L Carbon Dioxide 27 (21-32) mEq/L Anion Gap 14.0 (5-15) BUN 17 (7-18) mg/dL Creatinine 0.9 (0.7-1.3) mg/dL Est Cr Clr Drug Dosing 123.30 mL/min Estimated GFR (MDRD) > 60 (>60) mL/min BUN/Creatinine Ratio 18.9 H (14-18) Glucose 101 (74-106) mg/dL Calcium 8.9 (8.5-10.1) mg/dL Med Orders - Current: Current Medications Benzocaine/Menthol (Cepacol Sore Throat) 1 lozenge MUCMEM Q2HR PRN PRN Reason: Sore Throat Heparin Sodium (Porcine) (Heparin Sodium) 7,500 units SUBCUT Q8H [facility] Last Admin: 03/29/20 05:49 Dose: 7,500 units Lactated Ringer's (Ringers, Lactated) 1,000 mls @ 100 mls/hr IV ASDIRECTED [facility] Last Admin: 03/29/20 09:58 Dose: 100 mls/hr Ketorolac Tromethamine (Toradol) 30 mg IVPUSH Q8H PRN PRN Reason: Pain Last Admin: 03/29/20 09:58 Dose: 30 mg Melatonin (Melatonin) 6 mg PO BEDTIME [facility] Phenol/Menthol (Chloraseptic Throat [place]) 0 ml MUCMEM Q2H PRN PRN Reason: Sore Throat Last Admin: 03/29/20 09:58 Dose: 2 spray Sodium Chloride (Saline Flush) 10 ml FLUSH ONETIME PRN PRN Reason: IV FLUSH Last Admin: 03/28/20 13:25 Dose: 10 ml Discontinued Medications Diatrizoate Meglum/Diatrizoate Sod (Gastrografin 37%) 120 ml PO ONETIME ONE Stop: 03/28/20 11:34 Last Admin: 03/28/20 13:25 Dose: 95 ml Hydromorphone HCl (Dilaudid) 0.5 mg IVPUSH ONETIME ONE Stop: 03/28/20 13:47 Last Admin: 03/28/20 13:53 Dose: 0.5 mg Sodium Chloride (Normal Saline) 1,000 mls @ 150 mls/hr IV ASDIRECTED [facility] Last Admin: 03/28/20 11:32 Dose: 150 mls/hr Sodium Chloride (Normal Saline) 1,000 mls @ 1,000 mls/hr IV ONETIME ONE Stop: 03/28/20 15:38 Last Admin: 03/28/20 15:24 Dose: 1,000 mls/hr Iopamidol (Isovue-370 (76%)) 100 ml IVPUSH ONETIME ONE Stop: 03/28/20 11:34 Last Admin: 03/28/20 13:25 Dose: 100 ml Iopamidol (Isovue-370 (76%)) 50 ml IVPUSH ONETIME ONE Stop: 03/28/20 12:59 Last Admin: 03/28/20 13:25 Dose: 50 ml Ondansetron HCl (Zofran) 4 mg IVPUSH ONETIME ONE Stop: 03/28/20 11:15 Last Admin: 03/28/20 11:32 Dose: 4 mg - Exam Wound/Incisions: Healing Well, No Drainage General: Alert, Oriented HEENT: EOMI, Other (NGT in place with output of gastric contents) GI/Abdominal Exam: Soft, Tender (minimal in upper abdomen and periumbilical area ) Sepsis Event Note - Evaluation Sepsis Screening Result: No Definite Risk - Focused Exam Vital Signs: Vital Signs Temp Pulse Resp BP Pulse Ox 03/29/20 11:44 36.8 C 84 20 134/86 92 L 03/29/20 07:36 36.8 C 101 H 26 H 138/92 H 92 L 03/29/20 04:16 36.8 C 102 H 16 109/66 92 L Date Exam was Performed: 03/29/20 Time Exam was Performed: 15:25 - Problem List & Annotations (1) Small bowel obstruction SNOMED Code(s): 392857366 Code(s): K56.609 - UNSP INTESTNL OBST, UNSP TO PARTIAL VERSUS COMPLETE OBST Status: Acute Current Visit: Yes - Problem List Review Problem List Initiated/Reviewed/Updated: Yes - My Orders Last 24 Hours: Active Orders 24 hr Category Date Time Status UA RFX TERI AND CULT IF INDIC [URIN] Routine Lab 03/29/20 15:23 Ordered Benzocaine/Cetylpyrd/Menthol [Cepacol Sore Throat] Med 03/29/20 15:23 Ordered 1 lozenge MUCMEM Q2HR PRN Ketorolac [Toradol] Med 03/28/20 16:13 Active 30 mg IVPUSH Q8H PRN Lactated Ringers [Ringers, Lactated] 1,000 ml Med 03/28/20 14:30 Active IV ASDIRECTED Melatonin Med 03/29/20 21:00 Ordered 5 mg PO BEDTIME Phenol [Chloraseptic Throat [place]] Med 03/28/20 16:13 Active 0 ml MUCMEM Q2H PRN Medication Orders Benzocaine/Menthol (Cepacol Sore Throat) 1 lozenge MUCMEM Q2HR PRN PRN Reason: Sore Throat Heparin Sodium (Porcine) (Heparin Sodium) 7,500 units SUBCUT Q8H [facility] Last Admin: 03/29/20 05:49 Dose: 7,500 units Admin: 03/28/20 21:57 Dose: 7,500 units Admin: 03/28/20 16:05 Dose: 7,500 units Lactated Ringer's (Ringers, Lactated) 1,000 mls @ 100 mls/hr IV ASDIRECTED [facility] Last Admin: 03/29/20 09:58 Dose: 100 mls/hr Infusion: 03/29/20 09:58 Dose: 100 mls/hr Admin: 03/29/20 01:12 Dose: 100 mls/hr Infusion: 03/29/20 01:12 Dose: 100 mls/hr Admin: 03/28/20 16:03 Dose: 100 mls/hr Ketorolac Tromethamine (Toradol) 30 mg IVPUSH Q8H PRN PRN Reason: Pain Last Admin: 03/29/20 09:58 Dose: 30 mg Admin: 03/29/20 00:41 Dose: 30 mg Admin: 03/28/20 16:31 Dose: 30 mg Melatonin (Melatonin) 6 mg PO BEDTIME [facility] Phenol/Menthol (Chloraseptic Throat [place]) 0 ml MUCMEM Q2H PRN PRN Reason: Sore Throat Last Admin: 03/29/20 09:58 Dose: 2 spray Admin: 03/29/20 04:09 Dose: 2 spray Sodium Chloride (Saline Flush) 10 ml FLUSH ONETIME PRN PRN Reason: IV FLUSH Last Admin: 03/28/20 13:25 Dose: 10 ml - Assessment Assessment (Free Text/Narrative):: 40 y/o gentleman with postoperative SBO. Responding to NGT decompression - Plan Plan (Free Text/Narrative):: - continue NGT since still has high output - encourage ambulation - cepacol lozenges, may chew gum - NPO - melatonin for sleep - SCDs and subcutaneous heparin for DVT ppx Thais Gonzalez MD General surgery
[2020-03-29] MEDS: Benzocaine/Cetylpyridinium/Menthol Lozenge MUCMEM PRN ×2 (15:48→21:29)
[2020-03-29] MEDS: Melatonin 3 MG Tab PO SCH (21:29)
[2020-03-30] MEDS: Ketorolac 30 MG/ML SDV IVPUSH PRN ×3 (04:12→21:59)
[2020-03-30] MEDS: Lactated Ringers 1,000 ML IV SCH ×2 (04:13→13:50)
[2020-03-30] MEDS: Heparin Sodium 5,000 Units/ML Vial SUBCUT SCH ×3 (05:20→21:42)
[2020-03-30] MEDS: Benzocaine/Cetylpyridinium/Menthol Lozenge MUCMEM PRN ×3 (07:57→21:59)
[2020-03-30] MEDS: Pantoprazole 40 MG Vial IVPUSH SCH ×2 (07:58→08:29)
[2020-03-30] MEDS: cefTRIAXone 1 GM in Sodium Chloride 0.9% 100 ML IV SCH (17:26)
[2020-03-30] MEDS: D5 1/2 NS w/ 20 mEq/L KCl 1,000 ML IV SCH (18:02)
[2020-03-30] MEDS: Melatonin 3 MG Tab PO SCH (21:41)
[2020-03-31] MEDS: D5 1/2 NS w/ 20 mEq/L KCl 1,000 ML IV SCH (03:31)
[2020-03-31] MEDS: Heparin Sodium 5,000 Units/ML Vial SUBCUT SCH ×2 (06:29→15:09)
--- NOTE | 2020-03-31 07:51 | PCM.SURGPN ---
- General Info Date of Service: 03/30/20 POD#: 6 Functional Status: Reports: Pain Controlled, Ambulating, Urinating, Other (pt vomited overnight while NGT was in place. still having flatus) - Patient Data Vitals - Most Recent: Last Vital Signs Temp 36.8 C 03/31/20 03:36 Pulse 92 03/31/20 03:36 Resp 18 03/31/20 03:36 BP 137/89 03/31/20 03:36 Pulse Ox 94 L 03/31/20 03:36 Weight - Most Recent: 150.094 kg I&O - Last 24 Hours: Intake & Output 03/30/20 03/31/20 03/31/20 22:59 06:59 14:59 Intake Total 1298 Output Total 550 500 Balance -550 798 Lab Results Last 24 Hrs: Laboratory Results - last 24 hr 03/31/20 03/31/20 Range/Units 05:45 05:45 WBC 7.95 (4.23-9.07) K/mm3 RBC 4.35 L (4.63-6.08) M/mm3 Hgb 12.6 L (13.7-17.5) gm/dl Hct 39.5 L (40.1-51.0) % MCV 90.8 (79.0-92.2) fl MCH 29.0 (25.7-32.2) pg MCHC 31.9 L (32.2-35.5) g/dl RDW Std Deviation 44.6 H (35.1-43.9) fL Plt Count 266 (163-337) K/mm3 MPV 10.9 (9.4-12.3) fl Neutrophils % (Manual) 65 H (40-60) % Band Neutrophils % 1 (0-10) % Lymphocytes % (Manual) 22 (20-40) % Atypical Lymphs % 0 % Monocytes % (Manual) 7 (2-10) % Eosinophils % (Manual) 4 (0.8-7.0) % Basophils % (Manual) 1 (0.2-1.2) Platelet Estimate Adequate Anisocytosis 1+ slight RBC Morph Comment Not Reportable Sodium 141 (136-145) mEq/L Potassium 3.3 L (3.5-5.1) mEq/L Chloride 103 (98-107) mEq/L Carbon Dioxide 32 (21-32) mEq/L Anion Gap 9.3 (5-15) BUN 27 H (7-18) mg/dL Creatinine 1.0 (0.7-1.3) mg/dL Est Cr Clr Drug Dosing 110.97 mL/min Estimated GFR (MDRD) > 60 (>60) mL/min BUN/Creatinine Ratio 27.0 H (14-18) Glucose 111 H (74-106) mg/dL Calcium 8.6 (8.5-10.1) mg/dL Phosphorus 3.2 (2.6-4.7) mg/dL Magnesium 2.2 (1.8-2.4) mg/dl Med Orders - Current: Current Medications Benzocaine/Menthol (Cepacol Sore Throat) 1 lozenge MUCMEM Q2H PRN PRN Reason: Sore Throat Last Admin: 03/30/20 21:59 Dose: 1 lozenge Heparin Sodium (Porcine) (Heparin Sodium) 7,500 units SUBCUT Q8H [facility] Last Admin: 03/31/20 06:29 Dose: 7,500 units Ceftriaxone Sodium 1 gm/ (Sodium Chloride) 100 mls @ 200 mls/hr IV Q24H [facility] Last Admin: 03/30/20 17:26 Dose: 200 mls/hr Potassium Chloride/Dextrose/Sod Cl (D5 1/2 Ns W/ 20 Meq/L Kcl) 1,000 mls @ 100 mls/hr IV ASDIRECTED [facility] Last Admin: 03/31/20 03:31 Dose: 100 mls/hr Ketorolac Tromethamine (Toradol) 30 mg IVPUSH Q8H PRN PRN Reason: Pain Last Admin: 03/30/20 21:59 Dose: 30 mg Melatonin (Melatonin) 6 mg PO BEDTIME [facility] Last Admin: 03/30/20 21:41 Dose: Not Given Pantoprazole Sodium (Protonix Iv) 40 mg IVPUSH DAILY [facility] Last Admin: 03/30/20 08:29 Dose: Not Given Phenol/Menthol (Chloraseptic Throat [place]) 0 ml MUCMEM Q2H PRN PRN Reason: Sore Throat Last Admin: 03/29/20 15:48 Dose: 2 spray Sodium Chloride (Saline Flush) 10 ml FLUSH ONETIME PRN PRN Reason: IV FLUSH Last Admin: 03/28/20 13:25 Dose: 10 ml Discontinued Medications Diatrizoate Meglum/Diatrizoate Sod (Gastrografin 37%) 120 ml PO ONETIME ONE Stop: 03/28/20 11:34 Last Admin: 03/28/20 13:25 Dose: 95 ml Hydromorphone HCl (Dilaudid) 0.5 mg IVPUSH ONETIME ONE Stop: 03/28/20 13:47 Last Admin: 03/28/20 13:53 Dose: 0.5 mg Sodium Chloride (Normal Saline) 1,000 mls @ 150 mls/hr IV ASDIRECTED [facility] Last Admin: 03/28/20 11:32 Dose: 150 mls/hr Lactated Ringer's (Ringers, Lactated) 1,000 mls @ 100 mls/hr IV ASDIRECTED [facility] Last Admin: 03/30/20 13:50 Dose: 100 mls/hr Sodium Chloride (Normal Saline) 1,000 mls @ 1,000 mls/hr IV ONETIME ONE Stop: 03/28/20 15:38 Last Admin: 03/28/20 15:24 Dose: 1,000 mls/hr Iopamidol (Isovue-370 (76%)) 100 ml IVPUSH ONETIME ONE Stop: 03/28/20 11:34 Last Admin: 03/28/20 13:25 Dose: 100 ml Iopamidol (Isovue-370 (76%)) 50 ml IVPUSH ONETIME ONE Stop: 03/28/20 12:59 Last Admin: 03/28/20 13:25 Dose: 50 ml Ondansetron HCl (Zofran) 4 mg IVPUSH ONETIME ONE Stop: 03/28/20 11:15 Last Admin: 03/28/20 11:32 Dose: 4 mg - Exam General: Alert, Oriented HEENT: Other (NGT in place) GI/Abdominal Exam: Soft, Tender (minimal) Sepsis Event Note - Evaluation Sepsis Screening Result: No Definite Risk - Focused Exam Vital Signs: Vital Signs Temp Pulse Resp BP Pulse Ox 03/31/20 03:36 36.8 C 92 18 137/89 94 L 03/30/20 20:28 36.8 C 113 H 19 131/87 95 Date Exam was Performed: 03/31/20 Time Exam was Performed: 07:46 - Problem List & Annotations (1) Small bowel obstruction SNOMED Code(s): 601943496 Code(s): K56.609 - UNSP INTESTNL OBST, UNSP TO PARTIAL VERSUS COMPLETE OBST Status: Acute Current Visit: Yes (2) Urinary tract infection SNOMED Code(s): 28872342 Code(s): N39.0 - URINARY TRACT INFECTION, SITE NOT SPECIFIED Status: Acute Current Visit: Yes Qualifiers: Urinary tract infection type: acute cystitis Hematuria presence: without hematuria Qualified Code(s): N30.00 - Acute cystitis without hematuria - Problem List Review Problem List Initiated/Reviewed/Updated: Yes - My Orders Last 24 Hours: Active Orders 24 hr Category Date Time Status Clear Liquid Diet [DIET] Diet 03/31/20 Breakfast Active BMP [BASIC METABOLIC PANEL,BMP] [CHEM] AM Lab 04/01/20 05:11 Ordered BMP [BASIC METABOLIC PANEL,BMP] [CHEM] AM Lab 04/02/20 05:11 Ordered BMP [BASIC METABOLIC PANEL,BMP] [CHEM] AM Lab 04/03/20 05:11 Ordered BMP [BASIC METABOLIC PANEL,BMP] [CHEM] AM Lab 04/04/20 05:11 Ordered BMP [BASIC METABOLIC PANEL,BMP] [CHEM] AM Lab 04/05/20 05:11 Ordered BMP [BASIC METABOLIC PANEL,BMP] [CHEM] AM Lab 04/06/20 05:11 Ordered BMP [BASIC METABOLIC PANEL,BMP] [CHEM] AM Lab 04/07/20 05:11 Ordered BMP [BASIC METABOLIC PANEL,BMP] [CHEM] AM Lab 04/08/20 05:11 Ordered CBC WITH MANUAL DIFF [HEME] AM Lab 04/01/20 05:11 Ordered CBC WITH MANUAL DIFF [HEME] AM Lab 04/02/20 05:11 Ordered CBC WITH MANUAL DIFF [HEME] AM Lab 04/03/20 05:11 Ordered CBC WITH MANUAL DIFF [HEME] AM Lab 04/04/20 05:11 Ordered CBC WITH MANUAL DIFF [HEME] AM Lab 04/05/20 05:11 Ordered CBC WITH MANUAL DIFF [HEME] AM Lab 04/06/20 05:11 Ordered CBC WITH MANUAL DIFF [HEME] AM Lab 04/07/20 05:11 Ordered CBC WITH MANUAL DIFF [HEME] AM Lab 04/08/20 05:11 Ordered MAGNESIUM [CHEM] AM Lab 04/01/20 05:11 Ordered MAGNESIUM [CHEM] AM Lab 04/02/20 05:11 Ordered MAGNESIUM [CHEM] AM Lab 04/03/20 05:11 Ordered MAGNESIUM [CHEM] AM Lab 04/04/20 05:11 Ordered MAGNESIUM [CHEM] AM Lab 04/05/20 05:11 Ordered MAGNESIUM [CHEM] AM Lab 04/06/20 05:11 Ordered MAGNESIUM [CHEM] AM Lab 04/07/20 05:11 Ordered MAGNESIUM [CHEM] AM Lab 04/08/20 05:11 Ordered PHOSPHORUS [CHEM] AM Lab 04/01/20 05:11 Ordered PHOSPHORUS [CHEM] AM Lab 04/02/20 05:11 Ordered PHOSPHORUS [CHEM] AM Lab 04/03/20 05:11 Ordered PHOSPHORUS [CHEM] AM Lab 04/04/20 05:11 Ordered PHOSPHORUS [CHEM] AM Lab 04/05/20 05:11 Ordered PHOSPHORUS [CHEM] AM Lab 04/06/20 05:11 Ordered PHOSPHORUS [CHEM] AM Lab 04/07/20 05:11 Ordered PHOSPHORUS [CHEM] AM Lab 04/08/20 05:11 Ordered D5 1/2 NS w/ 20 mEq/L KCl 1,000 ml Med 03/30/20 17:00 Active IV ASDIRECTED Pantoprazole [ProTONIX IV] Med 03/30/20 09:00 Active 40 mg IVPUSH DAILY cefTRIAXone [Rocephin] 1 gm Med 03/30/20 17:00 Active Sodium Chloride 0.9% [Normal Saline] 100 ml IV Q24H Medication Orders Benzocaine/Menthol (Cepacol Sore Throat) 1 lozenge MUCMEM Q2H PRN PRN Reason: Sore Throat Last Admin: 03/30/20 21:59 Dose: 1 lozenge Admin: 03/30/20 13:50 Dose: 1 lozenge Admin: 03/30/20 07:57 Dose: 1 lozenge Admin: 03/29/20 21:29 Dose: 1 lozenge Admin: 03/29/20 15:48 Dose: 1 lozenge Heparin Sodium (Porcine) (Heparin Sodium) 7,500 units SUBCUT Q8H [facility] Last Admin: 03/31/20 06:29 Dose: 7,500 units Admin: 03/30/20 21:42 Dose: 7,500 units Admin: 03/30/20 13:53 Dose: 7,500 units Admin: 03/30/20 05:20 Dose: 7,500 units Admin: 03/29/20 21:29 Dose: 7,500 units Admin: 03/29/20 15:48 Dose: 7,500 units Admin: 03/29/20 05:49 Dose: 7,500 units Admin: 03/28/20 21:57 Dose: 7,500 units Admin: 03/28/20 16:05 Dose: 7,500 units Ceftriaxone Sodium 1 gm/ (Sodium Chloride) 100 mls @ 200 mls/hr IV Q24H [facility] Last Admin: 03/30/20 17:26 Dose: 200 mls/hr Potassium Chloride/Dextrose/Sod Cl (D5 1/2 Ns W/ 20 Meq/L Kcl) 1,000 mls @ 100 mls/hr IV ASDIRECTED [facility] Last Admin: 03/31/20 03:31 Dose: 100 mls/hr Infusion: 03/31/20 03:31 Dose: 100 mls/hr Admin: 03/30/20 18:02 Dose: 100 mls/hr Ketorolac Tromethamine (Toradol) 30 mg IVPUSH Q8H PRN PRN Reason: Pain Last Admin: 03/30/20 21:59 Dose: 30 mg Admin: 03/30/20 13:50 Dose: 30 mg Admin: 03/30/20 04:12 Dose: 30 mg Admin: 03/29/20 18:28 Dose: 30 mg Admin: 03/29/20 09:58 Dose: 30 mg Admin: 03/29/20 00:41 Dose: 30 mg Admin: 03/28/20 16:31 Dose: 30 mg Melatonin (Melatonin) 6 mg PO BEDTIME [facility] Last Admin: 03/30/20 21:41 Dose: Not Given Admin: 03/29/20 21:29 Dose: 6 mg Pantoprazole Sodium (Protonix Iv) 40 mg IVPUSH DAILY [facility] Last Admin: 03/30/20 08:29 Dose: Admin: 03/30/20 07:58 Dose: 40 mg Phenol/Menthol (Chloraseptic Throat [place]) 0 ml MUCMEM Q2H PRN PRN Reason: Sore Throat Last Admin: 03/29/20 15:48 Dose: 2 spray Admin: 03/29/20 09:58 Dose: 2 spray Admin: 06/08/20 04:09 Dose: 2 spray Sodium Chloride (Saline Flush) 10 ml FLUSH ONETIME PRN PRN Reason: IV FLUSH Last Admin: 03/28/20 13:25 Dose: 10 ml - Assessment Assessment (Free Text/Narrative):: 40 y/o male with early postoperative SBO vs. Ileus from UTI. Doing well - Plan Plan (Free Text/Narrative):: - continue NGT to [facility] - ambulate - SCDS and heparin - awaiting culture results for UA Thais Gonzalez MD General surgery
--- NOTE | 2020-03-31 07:56 | PCM.SURGPN ---
- General Info Date of Service: 03/31/20 POD#: 7 Functional Status: Reports: Pain Controlled, Ambulating, Urinating, Other (pt had bowel movement yesterday. Reports belching feels more normal. Feels gas movement. No nausea while tube was clamped overnight and tolerated water PO) - Patient Data Vitals - Most Recent: Last Vital Signs Temp 36.8 C 03/31/20 03:36 Pulse 92 03/31/20 03:36 Resp 18 03/31/20 03:36 BP 137/89 03/31/20 03:36 Pulse Ox 94 L 03/31/20 03:36 Weight - Most Recent: 150.094 kg I&O - Last 24 Hours: Intake & Output 03/30/20 03/31/20 03/31/20 22:59 06:59 14:59 Intake Total 1298 Output Total 550 500 Balance -550 798 Lab Results Last 24 Hrs: Laboratory Results - last 24 hr 03/31/20 03/31/20 Range/Units 05:45 05:45 WBC 7.95 (4.23-9.07) K/mm3 RBC 4.35 L (4.63-6.08) M/mm3 Hgb 12.6 L (13.7-17.5) gm/dl Hct 39.5 L (40.1-51.0) % MCV 90.8 (79.0-92.2) fl MCH 29.0 (25.7-32.2) pg MCHC 31.9 L (32.2-35.5) g/dl RDW Std Deviation 44.6 H (35.1-43.9) fL Plt Count 266 (163-337) K/mm3 MPV 10.9 (9.4-12.3) fl Neutrophils % (Manual) 65 H (40-60) % Band Neutrophils % 1 (0-10) % Lymphocytes % (Manual) 22 (20-40) % Atypical Lymphs % 0 % Monocytes % (Manual) 7 (2-10) % Eosinophils % (Manual) 4 (0.8-7.0) % Basophils % (Manual) 1 (0.2-1.2) Platelet Estimate Adequate Anisocytosis 1+ slight RBC Morph Comment Not Reportable Sodium 141 (136-145) mEq/L Potassium 3.3 L (3.5-5.1) mEq/L Chloride 103 (98-107) mEq/L Carbon Dioxide 32 (21-32) mEq/L Anion Gap 9.3 (5-15) BUN 27 H (7-18) mg/dL Creatinine 1.0 (0.7-1.3) mg/dL Est Cr Clr Drug Dosing 110.97 mL/min Estimated GFR (MDRD) > 60 (>60) mL/min BUN/Creatinine Ratio 27.0 H (14-18) Glucose 111 H (74-106) mg/dL Calcium 8.6 (8.5-10.1) mg/dL Phosphorus 3.2 (2.6-4.7) mg/dL Magnesium 2.2 (1.8-2.4) mg/dl Med Orders - Current: Current Medications Benzocaine/Menthol (Cepacol Sore Throat) 1 lozenge MUCMEM Q2H PRN PRN Reason: Sore Throat Last Admin: 03/30/20 21:59 Dose: 1 lozenge Heparin Sodium (Porcine) (Heparin Sodium) 7,500 units SUBCUT Q8H [facility] Last Admin: 03/31/20 06:29 Dose: 7,500 units Ceftriaxone Sodium 1 gm/ (Sodium Chloride) 100 mls @ 200 mls/hr IV Q24H [facility] Last Admin: 03/30/20 17:26 Dose: 200 mls/hr Potassium Chloride/Dextrose/Sod Cl (D5 1/2 Ns W/ 20 Meq/L Kcl) 1,000 mls @ 100 mls/hr IV ASDIRECTED [facility] Last Admin: 03/31/20 03:31 Dose: 100 mls/hr Ketorolac Tromethamine (Toradol) 30 mg IVPUSH Q8H PRN PRN Reason: Pain Last Admin: 03/30/20 21:59 Dose: 30 mg Melatonin (Melatonin) 6 mg PO BEDTIME [facility] Last Admin: 03/30/20 21:41 Dose: Not Given Pantoprazole Sodium (Protonix Iv) 40 mg IVPUSH DAILY [facility] Last Admin: 03/30/20 08:29 Dose: Not Given Phenol/Menthol (Chloraseptic Throat [place]) 0 ml MUCMEM Q2H PRN PRN Reason: Sore Throat Last Admin: 03/29/20 15:48 Dose: 2 spray Sodium Chloride (Saline Flush) 10 ml FLUSH ONETIME PRN PRN Reason: IV FLUSH Last Admin: 03/28/20 13:25 Dose: 10 ml Discontinued Medications Diatrizoate Meglum/Diatrizoate Sod (Gastrografin 37%) 120 ml PO ONETIME ONE Stop: 03/28/20 11:34 Last Admin: 03/28/20 13:25 Dose: 95 ml Hydromorphone HCl (Dilaudid) 0.5 mg IVPUSH ONETIME ONE Stop: 03/28/20 13:47 Last Admin: 03/28/20 13:53 Dose: 0.5 mg Sodium Chloride (Normal Saline) 1,000 mls @ 150 mls/hr IV [facility]IRECTED [facility] Last Admin: 03/28/20 11:32 Dose: 150 mls/hr Lactated Ringer's (Ringers, Lactated) 1,000 mls @ 100 mls/hr IV [facility]IRECTED [facility] Last Admin: 03/30/20 13:50 Dose: 100 mls/hr Sodium Chloride (Normal Saline) 1,000 mls @ 1,000 mls/hr IV ONETIME ONE Stop: 03/28/20 15:38 Last Admin: 03/28/20 15:24 Dose: 1,000 mls/hr Iopamidol (Isovue-370 (76%)) 100 ml IVPUSH ONETIME ONE Stop: 03/28/20 11:34 Last Admin: 03/28/20 13:25 Dose: 100 ml Iopamidol (Isovue-370 (76%)) 50 ml IVPUSH ONETIME ONE Stop: 03/28/20 12:59 Last Admin: 03/28/20 13:25 Dose: 50 ml Ondansetron HCl (Zofran) 4 mg IVPUSH ONETIME ONE Stop: 03/28/20 11:15 Last Admin: 03/28/20 11:32 Dose: 4 mg - Exam Quality Assessment: No: Supplemental Oxygen General: Alert, Oriented HEENT: EOMI Lungs: Normal Respiratory Effort GI/Abdominal Exam: Soft, Non-Tender Sepsis Event Note - Evaluation Sepsis Screening Result: No Definite Risk - Focused Exam Vital Signs: Vital Signs Temp Pulse Resp BP Pulse Ox 03/31/20 03:36 36.8 C 92 18 137/89 94 L 03/30/20 20:28 36.8 C 113 H 19 131/87 95 Date Exam was Performed: 03/31/20 Time Exam was Performed: 07:52 - Problem List & Annotations (1) Small bowel obstruction SNOMED Code(s): 280833594 Code(s): K56.609 - UNSP INTESTNL OBST, UNSP TO PARTIAL VERSUS COMPLETE OBST Status: Acute Current Visit: Yes (2) Urinary tract infection SNOMED Code(s): 00289522 Code(s): N39.0 - URINARY TRACT INFECTION, SITE NOT SPECIFIED Status: Acute Current Visit: Yes Qualifiers: Urinary tract infection type: acute cystitis Hematuria presence: without hematuria Qualified Code(s): N30.00 - Acute cystitis without hematuria - Problem List Review Problem List Initiated/Reviewed/Updated: Yes - My Orders Last 24 Hours: Active Orders 24 hr Category Date Time Status Clear Liquid Diet [DIET] Diet 03/31/20 Breakfast Active BMP [BASIC METABOLIC PANEL,BMP] [CHEM] AM Lab 04/01/20 05:11 Ordered BMP [BASIC METABOLIC PANEL,BMP] [CHEM] AM Lab 04/02/20 05:11 Ordered BMP [BASIC METABOLIC PANEL,BMP] [CHEM] AM Lab 04/03/20 05:11 Ordered BMP [BASIC METABOLIC PANEL,BMP] [CHEM] AM Lab 04/04/20 05:11 Ordered BMP [BASIC METABOLIC PANEL,BMP] [CHEM] AM Lab 04/05/20 05:11 Ordered BMP [BASIC METABOLIC PANEL,BMP] [CHEM] AM Lab 04/06/20 05:11 Ordered BMP [BASIC METABOLIC PANEL,BMP] [CHEM] AM Lab 04/07/20 05:11 Ordered BMP [BASIC METABOLIC PANEL,BMP] [CHEM] AM Lab 04/08/20 05:11 Ordered CBC WITH MANUAL DIFF [HEME] AM Lab 04/01/20 05:11 Ordered CBC WITH MANUAL DIFF [HEME] AM Lab 04/02/20 05:11 Ordered CBC WITH MANUAL DIFF [HEME] AM Lab 04/03/20 05:11 Ordered CBC WITH MANUAL DIFF [HEME] AM Lab 04/04/20 05:11 Ordered CBC WITH MANUAL DIFF [HEME] AM Lab 04/05/20 05:11 Ordered CBC WITH MANUAL DIFF [HEME] AM Lab 04/06/20 05:11 Ordered CBC WITH MANUAL DIFF [HEME] AM Lab 04/07/20 05:11 Ordered CBC WITH MANUAL DIFF [HEME] AM Lab 04/08/20 05:11 Ordered MAGNESIUM [CHEM] AM Lab 04/01/20 05:11 Ordered MAGNESIUM [CHEM] AM Lab 04/02/20 05:11 Ordered MAGNESIUM [CHEM] AM Lab 04/03/20 05:11 Ordered MAGNESIUM [CHEM] AM Lab 04/04/20 05:11 Ordered MAGNESIUM [CHEM] AM Lab 04/05/20 05:11 Ordered MAGNESIUM [CHEM] AM Lab 04/06/20 05:11 Ordered MAGNESIUM [CHEM] AM Lab 04/07/20 05:11 Ordered MAGNESIUM [CHEM] AM Lab 04/08/20 05:11 Ordered PHOSPHORUS [CHEM] AM Lab 04/01/20 05:11 Ordered PHOSPHORUS [CHEM] AM Lab 04/02/20 05:11 Ordered PHOSPHORUS [CHEM] AM Lab 04/03/20 05:11 Ordered PHOSPHORUS [CHEM] AM Lab 04/04/20 05:11 Ordered PHOSPHORUS [CHEM] AM Lab 04/05/20 05:11 Ordered PHOSPHORUS [CHEM] AM Lab 04/06/20 05:11 Ordered PHOSPHORUS [CHEM] AM Lab 04/07/20 05:11 Ordered PHOSPHORUS [CHEM] AM Lab 04/08/20 05:11 Ordered D5 1/2 NS w/ 20 mEq/L KCl 1,000 ml Med 03/30/20 17:00 Active IV ASDIRECTED Pantoprazole [ProTONIX IV] Med 03/30/20 09:00 Active 40 mg IVPUSH DAILY cefTRIAXone [Rocephin] 1 gm Med 03/30/20 17:00 Active Sodium Chloride 0.9% [Normal Saline] 100 ml IV Q24H Medication Orders Benzocaine/Menthol (Cepacol Sore Throat) 1 lozenge MUCMEM Q2H PRN PRN Reason: Sore Throat Last Admin: 03/30/20 21:59 Dose: 1 lozenge Admin: 03/30/20 13:50 Dose: 1 lozenge Admin: 03/30/20 07:57 Dose: 1 lozenge Admin: 03/29/20 21:29 Dose: 1 lozenge Admin: 03/29/20 15:48 Dose: 1 lozenge Heparin Sodium (Porcine) (Heparin Sodium) 7,500 units SUBCUT Q8H [facility] Last Admin: 03/31/20 06:29 Dose: 7,500 units Admin: 03/30/20 21:42 Dose: 7,500 units Admin: 03/30/20 13:53 Dose: 7,500 units Admin: 03/30/20 05:20 Dose: 7,500 units Admin: 03/29/20 21:29 Dose: 7,500 units Admin: 03/29/20 15:48 Dose: 7,500 units Admin: 03/29/20 05:49 Dose: 7,500 units Admin: 03/28/20 21:57 Dose: 7,500 units Admin: 03/28/20 16:05 Dose: 7,500 units Ceftriaxone Sodium 1 gm/ (Sodium Chloride) 100 mls @ 200 mls/hr IV Q24H [facility] Last Admin: 03/30/20 17:26 Dose: 200 mls/hr Potassium Chloride/Dextrose/Sod Cl (D5 1/2 Ns W/ 20 Meq/L Kcl) 1,000 mls @ 100 mls/hr IV ASDIRECTED [facility] Last Admin: 03/31/20 03:31 Dose: 100 mls/hr Infusion: 03/31/20 03:31 Dose: 100 mls/hr Admin: 03/30/20 18:02 Dose: 100 mls/hr Ketorolac Tromethamine (Toradol) 30 mg IVPUSH Q8H PRN PRN Reason: Pain Last Admin: 03/30/20 21:59 Dose: 30 mg Admin: 03/30/20 13:50 Dose: 30 mg Admin: 03/30/20 04:12 Dose: 30 mg Admin: 03/29/20 18:28 Dose: 30 mg Admin: 03/29/20 09:58 Dose: 30 mg Admin: 03/29/20 00:41 Dose: 30 mg Admin: 03/28/20 16:31 Dose: 30 mg Melatonin (Melatonin) 6 mg PO BEDTIME [facility] Last Admin: 03/30/20 21:41 Dose: Not Given Admin: 03/29/20 21:29 Dose: 6 mg Pantoprazole Sodium (Protonix Iv) 40 mg IVPUSH DAILY [facility] Last Admin: 03/30/20 08:29 Dose: Admin: 03/30/20 07:58 Dose: 40 mg Phenol/Menthol (Chloraseptic Throat [place]) 0 ml MUCMEM Q2H PRN PRN Reason: Sore Throat Last Admin: 03/29/20 15:48 Dose: 2 spray Admin: 03/29/20 09:58 Dose: 2 spray Admin: 03/29/20 04:09 Dose: 2 spray Sodium Chloride (Saline Flush) 10 ml FLUSH ONETIME PRN PRN Reason: IV FLUSH Last Admin: 03/28/20 13:25 Dose: 10 ml - Assessment Assessment (Free Text/Narrative):: 40 y/o male with early postoperative SBO vs ileus. resolving. doing well - Plan Plan (Free Text/Narrative):: - clear liquid diet, NGT was removed. Will advance as tolerated - continue antibiotics. Will need outpatient follow up and evaluation of bladder for history of "weak bladder" and UTI without instrumentation - ambulate, SCDs and heparin Possible discharge home today Thais Gonzalez MD General surgery
[2020-03-31] MEDS: Pantoprazole 40 MG Vial IVPUSH SCH (08:43)
--- NOTE | 2020-03-31 14:59 | PCM.DCSUM1 ---
Discharge Summary - Hospital Course Free Text/Narrative:: The patient is a 40-year-old gentleman who was admitted to the hospital for a small bowel obstruction versus ileus after a laparoscopic umbilical hernia repair. He presented to the emergency department on postoperative day 4. He was admitted and had NG tube decompression for 3 days. He had return of bowel function and the tube was clamped. He tolerated a trial of clear liquids and the NG tube was pulled. His diet was advanced to regular, he tolerated well. During his admission he was diagnosed with UTI. This is likely a large contributing factor to his obstructive symptoms. He was treated with antibiotics and discharged home on oral antibiotics. He is to follow-up in the clinic in 1 week. Diagnosis: Stroke: No Modified Grant Scale: No Signif.Disability Despite Sympt.Able to Carry Out Usual Act./Duties Modified Grant Scale Score: 1 - Discharge Data Discharge Date: 03/31/20 Discharge Disposition: Home, Self-Care 01 Condition: Good - Referral to Home Health Primary Care Physician: Vaibhav Lopes MD - Discharge Diagnosis/Problem(s) (1) Small bowel obstruction SNOMED Code(s): 159870270 ICD Code: K56.609 - UNSP INTESTNL OBST, UNSP TO PARTIAL VERSUS COMPLETE OBST Status: Acute Current Visit: Yes (2) Urinary tract infection SNOMED Code(s): 40391831 ICD Code: N39.0 - URINARY TRACT INFECTION, SITE NOT SPECIFIED Status: Acute Current Visit: Yes Qualifiers: Urinary tract infection type: acute cystitis Hematuria presence: without hematuria Qualified Code(s): N30.00 - Acute cystitis without hematuria - Patient Instructions Diet: Usual Diet as Tolerated Activity: As Tolerated Showering/Bathing: May Shower Notify Provider of: Fever, Increased Pain, Swelling and Redness, Drainage, Nausea and/or Vomiting - Discharge Plan *PRESCRIPTION DRUG MONITORING PROGRAM REVIEWED*: Not Applicable *COPY OF PRESCRIPTION DRUG MONITORING REPORT IN PATIENT MARYAN: Not Applicable Prescriptions/Med Rec: Ciprofloxacin HCl [Cipro] 500 mg PO BID 5 Days #10 tablet Home Medications: Home Meds Docusate Sodium [Colace] 100 mg PO BID #40 cap 03/24/20 [Rx] Ibuprofen 800 mg PO Q8HR PRN #30 tablet 03/24/20 [Rx] Ciprofloxacin HCl [Cipro] 500 mg PO BID 5 Days #10 tablet 03/31/20 [Rx] Patient Handouts: Bowel Obstruction, Steps to Quit Smoking Referrals: Vaibhav Lopes MD [Primary Care Provider] - - Discharge Summary/Plan Comment DC Time >30 min.: No - Patient Data Vitals - Most Recent: Last Vital Signs Temp 36.8 C 03/31/20 11:38 Pulse 85 03/31/20 11:38 Resp 20 03/31/20 11:38 BP 139/89 03/31/20 11:38 Pulse Ox 95 03/31/20 11:38 Weight - Most Recent: 150.094 kg I&O - Last 24 hours: Intake & Output 03/30/20 03/31/20 03/31/20 22:59 06:59 14:59 Intake Total 1298 920 Output Total 550 500 0 Balance -550 798 920 Lab Results - Last 24 hrs: Laboratory Results - last 24 hr 03/31/20 03/31/20 Range/Units 05:45 05:45 WBC 7.95 (4.23-9.07) K/mm3 RBC 4.35 L (4.63-6.08) M/mm3 Hgb 12.6 L (13.7-17.5) gm/dl Hct 39.5 L (40.1-51.0) % MCV 90.8 (79.0-92.2) fl MCH 29.0 (25.7-32.2) pg MCHC 31.9 L (32.2-35.5) g/dl RDW Std Deviation 44.6 H (35.1-43.9) fL Plt Count 266 (163-337) K/mm3 MPV 10.9 (9.4-12.3) fl Neutrophils % (Manual) 65 H (40-60) % Band Neutrophils % 1 (0-10) % Lymphocytes % (Manual) 22 (20-40) % Atypical Lymphs % 0 % Monocytes % (Manual) 7 (2-10) % Eosinophils % (Manual) 4 (0.8-7.0) % Basophils % (Manual) 1 (0.2-1.2) Platelet Estimate Adequate Anisocytosis 1+ slight RBC Morph Comment Not Reportable Sodium 141 (136-145) mEq/L Potassium 3.3 L (3.5-5.1) mEq/L Chloride 103 (98-107) mEq/L Carbon Dioxide 32 (21-32) mEq/L Anion Gap 9.3 (5-15) BUN 27 H (7-18) mg/dL Creatinine 1.0 (0.7-1.3) mg/dL Est Cr Clr Drug Dosing 110.97 mL/min Estimated GFR (MDRD) > 60 (>60) mL/min BUN/Creatinine Ratio 27.0 H (14-18) Glucose 111 H (74-106) mg/dL Calcium 8.6 (8.5-10.1) mg/dL Phosphorus 3.2 (2.6-4.7) mg/dL Magnesium 2.2 (1.8-2.4) mg/dl TERI Results - Last 24 hrs: Microbiology 03/29/20 17:00 Urine Culture - Final Urine, Voided NO GROWTH AFTER 2 DAYS Med Orders - Current: Current Medications Benzocaine/Menthol (Cepacol Sore Throat) 1 lozenge MUCMEM Q2H PRN PRN Reason: Sore Throat Last Admin: 03/30/20 21:59 Dose: 1 lozenge Heparin Sodium (Porcine) (Heparin Sodium) 7,500 units SUBCUT Q8H ROGER Last Admin: 03/31/20 06:29 Dose: 7,500 units Ceftriaxone Sodium 1 gm/ (Sodium Chloride) 100 mls @ 200 mls/hr IV Q24H ROGER Last Admin: 03/30/20 17:26 Dose: 200 mls/hr Ketorolac Tromethamine (Toradol) 30 mg IVPUSH Q8H PRN PRN Reason: Pain Last Admin: 03/30/20 21:59 Dose: 30 mg Melatonin (Melatonin) 6 mg PO BEDTIME ROGER Last Admin: 03/30/20 21:41 Dose: Not Given Pantoprazole Sodium (Protonix Iv) 40 mg IVPUSH DAILY [facility] Last Admin: 03/31/20 08:43 Dose: 40 mg Phenol/Menthol (Chloraseptic Throat Alliance) 0 ml MUCMEM Q2H PRN PRN Reason: Sore Throat Last Admin: 03/29/20 15:48 Dose: 2 spray Sodium Chloride (Saline Flush) 10 ml FLUSH ONETIME PRN PRN Reason: IV FLUSH Last Admin: 03/28/20 13:25 Dose: 10 ml Discontinued Medications Diatrizoate Meglum/Diatrizoate Sod (Gastrografin 37%) 120 ml PO ONETIME ONE Stop: 03/28/20 11:34 Last Admin: 03/28/20 13:25 Dose: 95 ml Hydromorphone HCl (Dilaudid) 0.5 mg IVPUSH ONETIME ONE Stop: 03/28/20 13:47 Last Admin: 03/28/20 13:53 Dose: 0.5 mg Sodium Chloride (Normal Saline) 1,000 mls @ 150 mls/hr IV ASDIRECTED [facility] Last Admin: 03/28/20 11:32 Dose: 150 mls/hr Lactated Ringer's (Ringers, Lactated) 1,000 mls @ 100 mls/hr IV ASDIRECTED [facility] Last Admin: 03/30/20 13:50 Dose: 100 mls/hr Sodium Chloride (Normal Saline) 1,000 mls @ 1,000 mls/hr IV ONETIME ONE Stop: 03/28/20 15:38 Last Admin: 03/28/20 15:24 Dose: 1,000 mls/hr Potassium Chloride/Dextrose/Sod Cl (D5 1/2 Ns W/ 20 Meq/L Kcl) 1,000 mls @ 100 mls/hr IV ASDIRECTED [facility] Last Admin: 03/31/20 03:31 Dose: 100 mls/hr Iopamidol (Isovue-370 (76%)) 100 ml IVPUSH ONETIME ONE Stop: 03/28/20 11:34 Last Admin: 03/28/20 13:25 Dose: 100 ml Iopamidol (Isovue-370 (76%)) 50 ml IVPUSH ONETIME ONE Stop: 03/28/20 12:59 Last Admin: 03/28/20 13:25 Dose: 50 ml Ondansetron HCl (Zofran) 4 mg IVPUSH ONETIME ONE Stop: 03/28/20 11:15 Last Admin: 03/28/20 11:32 Dose: 4 mg
[2020-03-31] MEDS: cefTRIAXone 1 GM in Sodium Chloride 0.9% 100 ML IV SCH (15:06)
== END 2020-03-31 15:50 | disposition home or self-care (01) | DRG 389 ==
LOC: JD.ED 10:55 → JD.MS 14:17
PROVIDERS: ADMIT Surgery; ATTEND Surgery
PROC: 0D9670Z Drainage of Stomach with Drainage Device, Via Natural or Artificial Opening (ICD-10-PCS; principal; 2020-03-28)
DX: K91.30 Postprocedural intestinal obstruction, unspecified as to partial versus complete (principal); N30.00 Acute cystitis without hematuria; Z79.899 Other long term (current) drug therapy; F17.210 Nicotine dependence, cigarettes, uncomplicated; Y83.8 Other surgical procedures as the cause of abnormal reaction of the patient, or of later complication, without mention of misadventure at the time of the procedure; Z98.890 Other specified postprocedural states
CPT/HCPCS: 36415; 74177; 74177-26; 80048; 80053; 81001; 83605; 83690; 83735; 84100; 85007; 85025; 85027; 86140; 87086; 96361; 96374; 96375; 99285-25; A9270-GY; C9113; J0696; J1170; J1644; J1885; J2405; J3480; J7030; J7050; J7120; Q9963; Q9967